=== PATIENT | male | born 1980 | race African-American/Black ===

== ENCOUNTER 2022-07-22 10:02 | Emergency (ER) | payer BC ==
[2022-07-22 11:25] VITALS: TEMP 97.8; BMI 23.7
[2022-07-22 11:53] VITALS: BP 131/73; PULSE 64; RESP 20
[2022-07-22] MEDS ORDERED: SODIUM CHLORIDE 0.9% 500 ML INFUS.BAG IV ONE (12:16)
[2022-07-22 13:50] LABS: BASO % 0.7 % (0-2.0); EOS % 3.8 % (0-4.5); HEMATOCRIT 43.2 % (35.4-49); HEMOGLOBIN 13.5 GM/dL (11.7-16.9); LYMPH % 38.6 % (8-40); MCH 23.1 pg (25.7-33.7); MCHC 31.2 g/dl (32.0-35.9); NEUT % 47.9 % (42.8-82.8); PLATELET COUNT 205 10^3/uL (134-434); RBC 5.83 M/mm3 (4.00-5.60); RDW 13.6 % (11.9-15.9); WHITE BLOOD COUNT 4.3 K/mm3 (4.0-10.0)
[2022-07-22 13:54] LABS: INR 1.08 (0.83-1.09); PROTHROMBIN TIME (PATIENT) 12.4 SEC (9.7-13.0)
[2022-07-22 13:57] LABS: ACTIVATED PTT 28.6 SECONDS (25.2-36.5)
[2022-07-22 14:05] LABS: BLOOD UREA NITROGEN 13.6 mg/dL (7-18); MAGNESIUM 2.2 mg/dL (1.8-2.4)
[2022-07-22 14:08] LABS: CREATININE 0.9 mg/dL (0.55-1.3)
[2022-07-22 14:10] LABS: BILIRUBIN,TOTAL 0.6 mg/dL (0.2-1); TOT PROT 7.6 g/dl (6.4-8.2)
== END 2022-07-22 16:01 | disposition home or self-care (01) ==
LOC: JER 10:02
DX: R07.9 Chest pain, unspecified (principal)
CPT/HCPCS: 36415; 71046-TC-FY; 80053; 82550; 83735; 84439; 84443; 84484; 85025; 85610; 85730; 93005; 93010; 99285-25